=== PATIENT | male | born 1975 | race Caucasian/White ===

== ENCOUNTER 2018-06-19 09:53 | Emergency (ER) | payer OTHER ==
[~2018-06-19] VITALS: Ht 188 cm; Wt 88.5 kg
--- OUTSIDE RECORDS SUMMARY | ~2018-06-19 | XMS ---
Demographics + + + | Address | [address] | | | [place] [address] | + + + | Preferred Language | Unknown | + + + | Marital Status | Unknown | + + + | Evangelical Affiliation | Unknown | + + + | Race | Unknown | + + + | Ethnic Group | Unknown | + + + Author + + + | Author | [facility] | + + + | Organization | [facility] | + + + | Address | [address] | | | [place] [address] | + + + | Phone | | + + + Care Team Providers + + + + | Care Cooker Sulfate Name | Role | Phone | + + + + Unavailable | Unavailable | + + + + PROBLEMS Unknown Problems ALLERGIES Unknown Allergies SOCIAL HISTORY No smoking Hx information available PLAN OF CARE VITAL SIGNS MEDICATIONS Unknown Medications RESULTS No Results PROCEDURES No Known procedures IMMUNIZATIONS No Known Immunizations"
--- OUTSIDE RECORDS SUMMARY | ~2018-06-19 | XMS ---
Demographics + + + | Address | [address] | | | [place] [address] | + + + | Preferred Language | Unknown | + + + | Marital Status | Unknown | + + + | Roman Catholic Affiliation | Unknown | + + + | Race | Unknown | + + + | Ethnic Group | Unknown | + + + Author + + + | Author | [facility] | + + + | Organization | [facility] | + + + | Address | [address] | | | [place] [address] | + + + | Phone | | + + + Care Team Providers + + + + | Care Engraving Plate Maker Name | Role | Phone | + + + + Unavailable | Unavailable | + + + + PROBLEMS + + + + + + + + | Type | Condition | ICD9-CM | [id number] | Onset | Condition | SNOMED | | | | Code | Code | Dates | Status | Code | + + + + + + + + | Assessment | Left ankle | S93.402A | | January, | Active | [id number] | | | sprain | | | 2016 | | [id number] | + + + + + + + + ALLERGIES + + + + +--------+ | Substance | Reaction | Event Type | Date | Status | + + + + +--------+ | codiene | Unknown | Drug Allergy | January, | Active | + + + + +--------+ | Penicillin | Unknown | Drug Allergy | January, | Active | + + + + +--------+ | Sulfa | Unknown | Drug Allergy | January, | Active | + + + + +--------+ SOCIAL HISTORY No smoking Hx information available PLAN OF CARE VITAL SIGNS + + + + | Height | 74 in | 2017-02-11 | + + + + | Weight | 191.1 lbs | 2017-02-11 | + + + + | BMI | 24.53 kg/m2 | 2017-02-11 | + + + + | Temperature | 98.7 degrees Fahrenheit | 2017-02-11 | + + + + | Heart Rate | 77 /min | 2017-02-11 | + + + + | Blood pressure systolic | 139 mm Hg | 2017-02-11 | + + + + | Blood pressure diastolic | 91 mm Hg | 2017-02-11 | + + + + MEDICATIONS + + + + + + + +--------+ | Medicati | Instruct | Dosage | Frequenc | Start | End Date | Duration | Status | | on | ions | | y | Date | | | | + + + + + + + +--------+ | Ibuprofe | Orally | 1 tablet | 6h | | | | Active | | n 200 MG | every 6 | as | | | | | | | | hrs | needed | | | | | | + + + + + + + +--------+ | Ibuprofe | Orally | 1 tablet | 8h | 07 February, | 20 January, | 10 | Active | | n 800 MG | Three | | | 2016 | 2016 | day(s) | | | | times a | | | | | | | | | day | | | | | | | + + + + + + + +--------+ RESULTS No Results PROCEDURES + + + + + | Procedure | Date Ordered | Related Diagnosis | Body Site | + + + + + | Est Level II | February 11, 2017 | | | | Limited | | | | + + + + + IMMUNIZATIONS No Known Immunizations"
--- OUTSIDE RECORDS SUMMARY | ~2018-06-19 | XMS ---
Demographics + + + | Address | [address] | | | [place] [address] | + + + | Preferred Language | Unknown | + + + | Marital Status | Unknown | + + + | Yazidism Affiliation | Unknown | + + + | Race | Unknown | + + + | Ethnic Group | Unknown | + + + Author + + + | Author | [facility] | + + + | Organization | [facility] | + + + | Address | [address] | | | [place] [address] | + + + | Phone | | + + + Care Team Providers + + + + | Care Head Transfer Clerk Name | Role | Phone | + + + + Unavailable | Unavailable | + + + + PROBLEMS Unknown Problems ALLERGIES + + + + +--------+ | Substance | Reaction | Event Type | Date | Status | + + + + +--------+ | codiene | Unknown | Drug Allergy | Mar, | Active | + + + + +--------+ | Penicillin | Unknown | Drug Allergy | Mar, | Active | + + + + +--------+ | Sulfa | Unknown | Drug Allergy | Mar, | Active | + + + + +--------+ SOCIAL HISTORY No smoking Hx information available PLAN OF CARE + +---------+ | Activity | Details | + +---------+ +---+ | | +---+ + + + | Follow Up | 4 Weeks Reason:null | + + + | Pending Test | MRI : Ankle, left | + + + VITAL SIGNS + + + + | Height | 74 in | 2017-04-11 | + + + + | Weight | 183.4 lbs | 2017-04-11 | + + + + | BMI | 23.54 kg/m2 | 2017-04-11 | + + + + | Temperature | 99.4 degrees Fahrenheit | 2017-04-11 | + + + + | Heart Rate | 64 /min | 2017-04-11 | + + + + | Blood pressure systolic | 139 mm Hg | 2017-04-11 | + + + + | Blood pressure diastolic | 76 mm Hg | 2017-04-11 | + + + + MEDICATIONS + [...] | | | Active | | n 800 MG | every 6 | as | | | | | | | | hrs | needed | | | | | | + + + + + + + +--------+ | Mobic 15 | Orally | 1 tablet | 24h | 12 Lisandro, | 8 Albert, | 30 | Active | | MG | Once a | | | 2016 | 2018 | day(s) | | | | day | | | | | | | + + + + + + + +--------+ | Neuronti | Orally 1 | as | | 12 Lisandro, | | 30 | Active | | n 100 MG | am 2 hs | directed | | 2016 | | | | + + + + + + + +--------+ RESULTS No Results PROCEDURES + + + + + | Procedure | Date Ordered | Related Diagnosis | Body Site | + + + + + | Est Level III | April 11, 2017 | | | | Intermediate | | | | + + + + + IMMUNIZATIONS No Known Immunizations"
--- OUTSIDE RECORDS SUMMARY | ~2018-06-19 | XMS ---
Demographics + + + | Address | [address] | | | [place] [address] | + + + | Preferred Language | Unknown | + + + | Marital Status | Unknown | + + + | Congregation Affiliation | Unknown | + + + | Race | Unknown | + + + | Ethnic Group | Unknown | + + + Author + + + | Author | [facility] | + + + | Organization | [facility] | + + + | Address | [address] | | | [place] [address] | + + + | Phone | | + + + Care Team Providers + + + + | Care Head Up Operator Name | Role | Phone | + + + + Unavailable | Unavailable | + + + + PROBLEMS Unknown Problems ALLERGIES No Known Allergies SOCIAL HISTORY No smoking Hx information available PLAN OF CARE VITAL SIGNS MEDICATIONS No Known Medications RESULTS No Results PROCEDURES No Known procedures IMMUNIZATIONS No Known Immunizations"
--- OUTSIDE RECORDS SUMMARY | ~2018-06-19 | XMS ---
Demographics + + + | Address | [address] | | | [place] [address] | + + + | Preferred Language | Unknown | + + + | Marital Status | Unknown | + + + | Yazdanism Affiliation | Unknown | + + + | Race | Unknown | + + + | Ethnic Group | Unknown | + + + Author + + + | Author | [facility] | + + + | Organization | [facility] | + + + | Address | [address] | | | [place] [address] | + + + | Phone | | + + + Care Team Providers + + + + | Care Entertainment Director Name | Role | Phone | + + + + Unavailable | Unavailable | + + + + PROBLEMS Unknown Problems ALLERGIES + + + + +--------+ | Substance | Reaction | Event Type | Date | Status | + + + + +--------+ | codiene | Unknown | Drug Allergy | May, | Active | + + + + +--------+ | Penicillin | Unknown | Drug Allergy | May, | Active | + + + + +--------+ | Sulfa | Unknown | Drug Allergy | May, | Active | + + + + +--------+ SOCIAL HISTORY No smoking Hx information available PLAN OF CARE + +---------+ | Activity | Details | + +---------+ +---+ | | +---+ + + + | Follow Up | 4 Weeks Reason:null | + + + VITAL SIGNS + + + + | Height | 74 in | 2017-05-11 | + + + + | Weight | 183 lbs | 2017-05-11 | + + + + | BMI | 23.49 kg/m2 | 2017-05-11 | + + + + | Heart Rate | 72 /min | 2017-05-11 | + + + + | Blood pressure systolic | 124 mm Hg | 2017-05-11 | + + + + | Blood pressure diastolic | 79 mm Hg | 2017-05-11 | + + + + MEDICATIONS + [...] Orally | 1 tablet | 24h | 11 May, | 7 Feb, | 30 | Active | | MG | Once a | | | 2017 | 2018 | day(s) | | | [...] + + | Est Level II | May 11, 2017 | | | | Limited | | | | + + + + + IMMUNIZATIONS No Known Immunizations"
--- OUTSIDE RECORDS SUMMARY | ~2018-06-19 | XMS ---
Demographics + + + | Address | [address] | | | [place] [address] | + + + | Preferred Language [...] | + + + | Organization | [facility] | + + + | Address | [address] | | | [place] [address] | + + + | Phone | | + + + Care Team Providers + + + + | Care Vp Genetic Name | Role | Phone | + + + + Unavailable | Unavailable | + + + + PROBLEMS + + + + + + + + | Type | Condition | ICD9-CM | [id number] | Onset | Condition | SNOMED | | | | Code | Code | Dates | Status | Code | + + + + + + + + | Assessment | Sprain of | | S93.412S | 16 February, | Active | [id number] | | | calcaneofi | | | 2016 | | | | | bular | | | | | | | | ligament | | | | | | | | of left | | | | | | | | ankle, | | | | | | | | sequela | | | | | | + [...] + | Height | 74 in | 2017-02-16 | + + + + | Weight | 191 lbs | 2017-02-16 | + + + + | BMI | 24.52 kg/m2 | 2017-02-16 | + + + + | Heart Rate | 85 /min | 2017-02-16 | + + + + | Blood pressure systolic | 128 mm Hg | 2017-02-16 | + + + + | Blood pressure diastolic | 83 mm Hg | 2017-02-16 | + + + + MEDICATIONS + [...] Orally | 1 tablet | 24h | 16 February, | 18 Mar, | 30 | Active | | MG | Once a | | | 2016 | 2016 | day(s) | | | | day | | | | | | | + + + + + + + +--------+ RESULTS No Results PROCEDURES + + + + + | Procedure | Date Ordered | Related Diagnosis | Body Site | + + + + + | DIABETES TERRITORY MANAGER Level 1 Brief | February 16, 2017 | | | + + + + + IMMUNIZATIONS No Known Immunizations"
--- OUTSIDE RECORDS SUMMARY | ~2018-06-19 | XMS ---
Demographics + + + | Address | [address] | | | [place] [address] | + + + | Preferred Language | Unknown | + + + | Marital Status | Unknown | + + + | Pentecostal Affiliation | Unknown | + + + | Race | Unknown | + + + | Ethnic Group | Unknown | + + + Author + + + | Author | [facility] | + + + | Organization | [facility] | + + + | Address | [address] | | | [place] [address] | + + + | Phone | | + + + Care Team Providers + + + + | Care Prints And Drawings Curator Name | Role | Phone | + + + + Unavailable | Unavailable | + + + + PROBLEMS Unknown Problems ALLERGIES Unknown Allergies SOCIAL HISTORY No smoking Hx information available PLAN OF CARE VITAL SIGNS MEDICATIONS Unknown Medications RESULTS No Results PROCEDURES No Known procedures IMMUNIZATIONS No Known Immunizations"
--- OUTSIDE RECORDS SUMMARY | ~2018-06-19 | XMS ---
Demographics + + + | Address | [address] | | | [place] [address] | + + + | Preferred Language | Unknown | + + + | Marital Status | Unknown | + + + | Worship Affiliation | Unknown | + + + | Race | Unknown | + + + | Ethnic Group | Unknown | + + + Author + + + | Author | [facility] | + + + | Organization | [facility] | + + + | Address | [address] | | | [place] [address] | + + + | Phone | | + + + Care Team Providers + + + + | Care Integration Consultant Name | Role | Phone | + + + + Unavailable | Unavailable | + + + + PROBLEMS Unknown Problems ALLERGIES No Information SOCIAL HISTORY Never Assessed PLAN OF CARE VITAL SIGNS MEDICATIONS Unknown Medications RESULTS No Results PROCEDURES No Known procedures IMMUNIZATIONS No Known Immunizations"
--- OUTSIDE RECORDS SUMMARY | ~2018-06-19 | XMS ---
Demographics + + + | [address] | [address] | | | [place] [address] | + + + | Preferred Language | Unknown | + + + | Marital Status | Unknown | + + + | Latter Day Affiliation | Unknown | + + + | Race | Unknown | + + + | Ethnic Group | Unknown | + + + Author + + + | Author | [facility] | + + + | Organization | [facility] | + + + | Address | [address] | | | [place] [address] | + + + | Phone | | + + + Care Team Providers + + + + | Care Tongue Trimmer Name | Role | Phone | + + + + Unavailable | Unavailable | + + + + PROBLEMS + + + + + + + + | Type | Condition | ICD9-CM | [id number] | Onset | Condition | SNOMED | | | | Code | Code | Dates | Status | Code | + + + + + + + + | Assessment | Left ankle | S93.402A | | 07 February, | Active | [id number] | | | sprain | | | 2016 | | [id number] | + + + + + + [...] + | Height | 74 in | 2017-02-07 | + + + + | Weight | 185 lbs | 2017-02-07 | + + + + | BMI | 23.75 kg/m2 | 2017-02-07 | + + + + | Temperature | 99.4 degrees Fahrenheit | 2017-02-07 | + + + + | Heart Rate | 104 /min | 2017-02-07 | + + + + | Blood pressure systolic | 139 mm Hg | 2017-02-07 | + + + + | Blood pressure diastolic | 94 mm Hg | 2017-02-07 | + + + + MEDICATIONS + [...] | + + + + + | ANIMAL HUSBANDRY TEACHER Level II Limited | February 07, 2017 | | | + + + + + IMMUNIZATIONS No Known Immunizations"
--- OUTSIDE RECORDS SUMMARY | ~2018-06-19 | XMS ---
Demographics + + + | [address] | [address] | | | [place] [address] | + + + | Preferred Language | Unknown | + + + | Marital Status | Unknown | + + + | Denominational Affiliation | Unknown | + + + | Race | Unknown | + + + | Ethnic Group | Unknown | + + + Author + + + | Author | [facility] | + + + | Organization | [facility] | + + + | Address | [address] | | | [place] [address] | + + + | Phone | | + + + Care Team Providers + + + + | Care Block Trimmer Name | Role | Phone | + + + + Unavailable | Unavailable | + + + + PROBLEMS Unknown Problems ALLERGIES + + + + +--------+ | Substance | Reaction | Event Type | Date | Status | + + + + +--------+ | codiene | Unknown | Drug Allergy | Jun, | Active | + + + + +--------+ | Penicillin | Unknown | Drug Allergy | Jun, | Active | + + + + +--------+ | Sulfa | Unknown | Drug Allergy | Jun, | Active | + + + + +--------+ SOCIAL HISTORY Never Assessed PLAN OF CARE + +---------+ | Activity | Details | + +---------+ +---+ | | +---+ + + + | Follow Up | prn Reason:null | + + + VITAL SIGNS + + + + | Height | 74 in | 2017-06-08 | + + + + | Weight | 184.2 lbs | 2017-06-08 | + + + + | BMI | 23.65 kg/m2 | 2017-06-08 | + + + + | Temperature | 98.6 degrees Fahrenheit | 2017-06-08 | + + + + | Heart Rate | 64 /min | 2017-06-08 | + + + + | Blood pressure systolic | 136 mm Hg | 2017-06-08 | + + + + | Blood pressure diastolic | 89 mm Hg | 2017-06-08 | + + + + MEDICATIONS + + + + +--------+ + +--------+ | Medicati | Instruct | Dosage | Frequenc | Start | End Date | Duration | Status | | on | ions | | y | Date | | | | + + + + +--------+ + +--------+ | Ibuprofe | Orally | 1 tablet | 6h | | | | Active | | n 800 MG | every 6 | as | | | | | | | | hrs | needed | | | | | | + + + + +--------+ + +--------+ RESULTS No Results PROCEDURES No Known procedures IMMUNIZATIONS No Known Immunizations"
--- OUTSIDE RECORDS SUMMARY | ~2018-06-19 | XMS ---
Demographics + + + | [address] | [address] | | | [place] [address] | + + + | Preferred Language | Unknown | + + + | Marital Status | Unknown | + + + | Sabianist Affiliation | Unknown | + + + | Race | Unknown | + + + | Ethnic Group | Unknown | + + + Author + + + | Author | [facility] | + + + | Organization [facility] | + + + | Address | [address] | | | [place] [address] | + + + | Phone | | + + + Care Team Providers + + + + | Care Roving Winder Name | Role | Phone | + [...] + + + | Follow Up | as scheduled with PCP Reason:null | + + + | Pending Test | Stool Culture C-S,C Diff, FIBERGLASS TUBE MOLDER | + + + | Pending Test | H Pylori Stool Test #[id number] | + + + VITAL SIGNS + + + + | Height | 74 in | 2017-06-28 | + + + + | Weight | 183.3 lbs | 2017-06-28 | + + + + | BMI | 23.53 kg/m2 | 2017-06-28 | + + + + | Temperature | 98.6 degrees Fahrenheit | 2017-06-28 | + + + + | Heart Rate | 86 /min | 2017-06-28 | + + + + | Blood pressure systolic | 122 mm Hg | 2017-06-28 | + + + + | Blood pressure diastolic | 92 mm Hg | 2017-06-28 | + + + + MEDICATIONS + [...] + + + +--------+ + +--------+ RESULTS + +--------+------+ + | Name | Result | Date | Reference Range | + +--------+------+ + | Stool Culture -O&P | | | | + +--------+------+ + PROCEDURES No Known procedures IMMUNIZATIONS No Known Immunizations"
[~2018-06-19 09:53] MED LIST: IBUPROFEN200 M1 PO
[2018-06-19] MEDS ORDERED: CLEOCIN HCL300 MG PO (11:00)
[2018-06-19] MEDS ORDERED: NORCO 5-325 TA1 EACH PO (11:00)
== END 2018-06-19 12:02 | disposition home or self-care (01) ==
LOC: ED 09:53
PROC: 0LQ83ZZ Repair Left Hand Tendon, Percutaneous Approach (ICD-10-PCS; principal; 2018-06-19)
DX: S66.922A Laceration of unspecified muscle, fascia and tendon at wrist and hand level, left hand, initial encounter (principal); W31.89XA Contact with other specified machinery, initial encounter; F17.200 Nicotine dependence, unspecified, uncomplicated; Z88.2 Allergy status to sulfonamides; Z88.0 Allergy status to penicillin; Z88.5 Allergy status to narcotic agent
CPT/HCPCS: 26410; 73130; 90715; 99282

== ENCOUNTER 2023-11-20 14:41 | Emergency (ER) | payer OTHER ==
[~2023-11-20] VITALS: Ht 188 cm; Wt 91.1 kg
[~2023-11-20 14:41] MED LIST changes: +CLEOCIN HCL300 MG PO; +NORCO 5-325 TA1 EACH PO
[2023-11-20 17:04] VITALS: BP 150/92
== END 2023-11-20 17:06 | disposition home or self-care (01) ==
LOC: ED 14:41
DX: M25.531 Pain in right wrist (principal); I10 Essential (primary) hypertension; I25.2 Old myocardial infarction; F17.200 Nicotine dependence, unspecified, uncomplicated; X50.0XXA Overexertion from strenuous movement or load, initial encounter; Y99.0 Civilian activity done for income or pay; Z88.2 Allergy status to sulfonamides; Z88.0 Allergy status to penicillin; Z88.5 Allergy status to narcotic agent
CPT/HCPCS: 73110; 99283-25

== ENCOUNTER 2024-07-25 12:08 | Emergency (ER) | payer OTHER ==
[~2024-07-25] VITALS: Ht 188 cm; Wt 91.2 kg
[2024-07-25 14:03] VITALS: BP 158/96
== END 2024-07-25 14:03 | disposition home or self-care (01) ==
LOC: ED 12:08
DX: S02.2XXA Fracture of nasal bones, initial encounter for closed fracture (principal); I10 Essential (primary) hypertension; I25.2 Old myocardial infarction; F17.200 Nicotine dependence, unspecified, uncomplicated; Z88.0 Allergy status to penicillin; Z88.2 Allergy status to sulfonamides; Z88.5 Allergy status to narcotic agent; W20.8XXA Other cause of strike by thrown, projected or falling object, initial encounter
CPT/HCPCS: 70450; 70486; 99283-25

== ENCOUNTER 2024-08-08 15:14 | Emergency (ER) | payer OTHER ==
[~2024-08-08] VITALS: Ht 188 cm; Wt 90.1 kg
--- OUTSIDE RECORDS SUMMARY | 2024-08-08 15:21 | XMS ---
PreManage Notification: MARLA RODRIGUEZ Security Medical Illustrator Events No recent Security Events currently on file CRITERIA MET - [facility] - 2 Visits in 30 Days CARE PROVIDERS EMERALD PFEIFFER Plastic Surgery 08/12/2018-Current PHONE: [phone] ANA OZUNA Nurse Practitioner: Family Current PHONE: [phone] Gu[place] has no Care Guidelines for this patient. Cyrus VISIT COUNT (12 MO.) [address] [place] [address] TOTAL 3 NOTE: Visits indicate total known visits. ED/UCC VISIT TRACKING (12 MO.) 08/08/2024 15:15 [facility] TYPE: Emergency COMPLAINT: - HEADACHE 07/25/2024 12:09 [facility] TYPE: Emergency COMPLAINT: - NOSE INJURY DIAGNOSES: - Abrasion of nose, initial encounter - Allergy status to narcotic agent - Allergy status to penicillin - Allergy status to sulfonamides - Essential (primary) hypertension - Fracture of nasal bones, initial encounter for closed fracture - Headache, unspecified - Nicotine dependence, unspecified, uncomplicated - Old myocardial infarction - Other cause of strike by thrown, projected or falling object, initial encounter - Unspecified injury of face, initial encounter 11/20/2023 14:[address] [facility] [place] TYPE: Emergency COMPLAINT: - RT WRIST INJURY DIAGNOSES: - Allergy status to narcotic agent - Allergy status to penicillin - Allergy status to sulfonamides - Civilian activity done for income or pay - Effusion, right wrist - Essential (primary) hypertension - Nicotine dependence, unspecified, uncomplicated - Old myocardial infarction - Overexertion from strenuous movement or load, initial encounter - Pain in right wrist INPATIENT VISIT TRACKING (12 MO.) No inpatient visits to display in this time frame [email or web address]
[2024-08-08] MEDS ORDERED: diphenhydrAMINE HCL 25 MG CAP PO ONE (15:45)
[2024-08-08] MEDS ORDERED: KETOROLAC TROMETHAMINE 30 MG/ML VIAL IV ONE (15:45)
[2024-08-08] MEDS ORDERED: METOCLOPRAMIDE HCL 10 MG/2 ML SDV IV ONE (15:45)
[2024-08-08] MEDS ORDERED: SODIUM CHLORIDE 0.9% 1,000 ML IV PRN (15:45)
[2024-08-08] MEDS ORDERED: ONDANSETRON ODT4 MG PO (16:51)
[2024-08-08] MEDS ORDERED: BUTALB-ACETAMI1 EAC2 PO (16:51)
[2024-08-08] MEDS ORDERED: MECLIZINE HCL25 MG PO (16:51)
[2024-08-08 17:05] VITALS: BP 137/94
== END 2024-08-08 17:07 | disposition home or self-care (01) ==
LOC: ED 15:14
DX: R51.9 Headache, unspecified (principal); H81.399 Other peripheral vertigo, unspecified ear; I10 Essential (primary) hypertension; I25.2 Old myocardial infarction; F17.200 Nicotine dependence, unspecified, uncomplicated; Z88.0 Allergy status to penicillin; Z88.2 Allergy status to sulfonamides; Z88.5 Allergy status to narcotic agent
CPT/HCPCS: 96374; 96375; 99283-25; J1885; J2765; J7030